=== PATIENT | female | born 1930 | race Caucasian/White ===

== ENCOUNTER → 2016-09-07 | Outpatient (REF) | payer OTHER ==
[2016-09-07 20:31] LABS: FERRITIN 265 NG/ML (8-252); TOTAL IRON BINDING CAPACITY 283 UG/DL (250-450)
[2016-09-08 11:56] LABS: FOLATE > 24.0 NG/ML (>5.4)
== END ==
LOC: M LAB REF 14:08
PROVIDERS: ATTEND Internal Medicine Nephrology
DX: D64.9 Anemia, unspecified (principal)

== ENCOUNTER → 2016-10-18 | Outpatient (CLI) | payer OTHER ==
--- NOTE | 2016-10-18 09:28 | REP ---
Clinical: Hypertension and chronic medical renal disease. Technique: Wheeler scale and color Doppler evaluation of the kidneys and renal vasculature using curved array transducer. Findings: The kidneys are mildly echogenic and normal in contour, size and reniform shape without hydronephrosis, nephrolithiasis, cystic or renal mass lesion. Right kidney measures 9.6 x 4.4 x 4.7 cm . Left kidney measures 9.3 x 4.3 x 4.6 cm . Bladder is incompletely distended and grossly normal by current evaluation. Color Doppler evaluation of the renal vasculature is limited and in the right main renal artery is not visualized due to marked scoliosis and associated technical factors. Remainder of the Doppler evaluation demonstrates normal arterial wave patterns, velocities, renal aortic ratios, resistive indices and the acceleration time. No sonographic evidence for renal arterial stenosis noted. Renal vein is patent. Right Kidney: Peak arterial velocity: Incompletely evaluated . Renal aortic ratio: Not applicable. Resistive indices: 0.71 - 0.81 . Acceleration times: 0.033 - 0.050 . Left kidney: Peak arterial velocity: 107.3 cm/sec . Renal aortic ratio: 1.0 . Resistive indices: 0.73 - 0.78 . Acceleration times: 0.042 - 0.045 . Impression: kidneys demonstrate changes related to chronic medical renal disease. Renal Doppler evaluation without evidence for renal arterial stenosis. Evaluation of the right renal vasculature is somewhat limited due to technical factors related to severe scoliosis, and if concern continues MRA may be of value. Signed by Gerson Babin MD 10/18/2016 09:20 A
== END ==
LOC: M RAD 08:12
PROVIDERS: ATTEND Internal Medicine Nephrology
DX: N18.3 Chronic kidney disease, stage 3 (moderate) (principal); I12.9 Hypertensive chronic kidney disease with stage 1 through stage 4 chronic kidney disease, or unspecified chronic kidney disease

== ENCOUNTER → 2016-11-13 | Outpatient (REF) | payer OTHER ==
[2016-11-13 13:34] LABS: VITAMIN B12 LEVEL 1441 PG/ML
[2016-11-13 13:35] LABS: FOLATE > 24.0 NG/ML
== END ==
LOC: M LAB REF 13:08
PROVIDERS: ATTEND Internal Medicine Nephrology
DX: D64.9 Anemia, unspecified (principal)

== ENCOUNTER → 2018-09-18 | Outpatient (REF) | payer OTHER ==
[2018-09-18 18:32] LABS: FERRITIN 79 NG/ML (8-252); IRON (FE) 66 UG/DL (50-170); TOTAL IRON BINDING CAPACITY 314 UG/DL (250-450)
[2018-09-18 18:50] LABS: FOLATE > 24.0 NG/ML; VITAMIN B12 LEVEL 861 PG/ML
[2018-09-23 16:31] LABS: Methylmalonic Acid 480 nmol/L (0-378)
== END ==
LOC: M LAB REF 17:13
PROVIDERS: ATTEND Internal Medicine Nephrology
DX: N18.9 Chronic kidney disease, unspecified (principal); D63.1 Anemia in chronic kidney disease